=== PATIENT | female | born 2005 | race Caucasian/White ===

== ENCOUNTER 2024-12-16 10:23 | Emergency (ER) | payer OTHER, SELFPAY ==
[2024-12-16 10:24] VITALS: BP 133/88
--- NOTE | 2024-12-16 12:51 | ED.GENMED ---
History of Present Illness
General
Chief Complaint: Nose Bleed
Source: patient
Time Seen by Provider: 12/16/24 12:42
History of Present Illness
History of Present Illness:
Kimberly is a 19-year-old female with history of nosebleeds that presents today from work with ongoing nosebleed. She states that she was at work and blew her nose after which she started having intense nosebleeding from about 10 AM to now (12:52 PM).
She states that she swallowed a lot of blood and feels a little bit lightheaded. She is afraid to blow her nose again as the bleeding is just slowing down now. She shares that she gets 1-2 nosebleeds per year and this has been an ongoing issue
since her childhood days. She also endorses intranasal dryness and environmental sensitivity. She denies trauma to the area, fever/chills, changes in vision, bleeding elsewhere, and recent infection.
Past History
Past History
ED Past Medical History: None
Social History
Tobacco: Non-smoker
Alcohol: None
Drug: None
Review of Systems
Review of Systems
Allergies reviewed?: No
All Other Systems: ROS reviewed and negative except as documented in HPI and ROS
EENT: Reports other (Bilateral epistaxis)
Phy Exam
General Physical Exam
General Presentation: well appearing and no apparent distress
General Skin: warm and dry
General Mental: alert
ENT Exam
ENT Exam: EOMI and other (Bilateral epistaxis)
Cardiovascular Exam
Cardiovascular Exam: regular rate/rhythm
Skin Exam
Skin Exam: normal color and warm/dry
Course
Orders/Labs/Results
Orders:
Orders
12/16/24 13:07
Ice Pack-Treatment DIRECTED
Location: to the neck
Comment: have pt lean forward w/ basin and pinching nose iso bleed, ice pack to neck
Oxymetazoline HCl [Afrin Nasal [place]] See Dose Instructions NASAL BID STA
Sodium Chloride [[place], Saline Mist] 2 sprays NASAL QIDPRN PRN
Vital Signs
Initial and Last Documented VS:
Initial Vital Signs
Temp Pulse Resp BP Pulse Ox
97.9 F 75 18 133/88 99
12/16/24 10:24 12/16/24 10:24 12/16/24 10:24 12/16/24 10:24 12/16/24 10:24
Last Documented Vital Signs
Temp Pulse Resp BP Pulse Ox
97.9 F 75 18 133/88 99
12/16/24 10:24 12/16/24 10:24 12/16/24 10:24 12/16/24 10:24 12/16/24 12:54
MDM/Problems Addressed
Differential Diagnosis Includes:
Epistaxis secondary to dry air or rhinitis
MDM/Problems Addressed:
Kimberly is a 19-year-old female with history of nosebleeds that presents today from work with ongoing nosebleed. She states that she was at work and blew her nose after which she started having intense nosebleeding from about 10 AM to now (12:52 PM).
#Epistaxis
Patient confirms that this is an ongoing problem for when she gets about 1-2 nosebleeds per year. At present, her nosebleed has slowed down, although she endorses being able to taste blood still.
- Encourage patient to sit up with ice to neck and pinch nose
- Irrigate nose with nasal saline
- Afrin spray after irrigation and to go home with
- Have her talk to PCP about following up with ENT as it is a chronic issue
*Pulse Oximetry
SaO2: 99
Oxygen Mode of Delivery: Room air
Patient hypoxic: no
*Critical Care Note
Total Time (30-74mins, 75-104mins- exclusive of procedures): Not Applicable
ED Attending Note
-
Portions of this chart may have been created with voice recognition software.� Occasional wrong word or��sound alike� substitutions may have occurred due to the inherent limitations of voice recognition software.
Discharge Plan
Departure
Patient Disposition: Home (Routine Discharge)
Date of Disposition: 12/16/24
Time of Disposition: 13:20
Patient with high blood pressure during this ER visit?: No
Condition: Good
Discharge Problem:
Epistaxis
Instructions: Nosebleeds, Oxymetazoline (Nasal)
Prescriptions:
New
oxymetazoline [Afrin Sinus (oxymetazoline)] 0.05 % spray,non-aerosol
2 spray intranasal Q12H PRN (Reason: Nosebleed) 3 Days Qty: 22 0RF
Rx Instructions:
Use as needed only and follow-up with PCP
Referrals:
PRIVATE,PHYSICIAN [Family Provider, Internal Medicine] - Call in 1-3 days for appt
Referral Note: Follow-up regarding your nosebleeds, Afrin nasal spray use, and referral to ENT.
Activity Restrictions/Additional Instructions:
Use Afrin sinus spray as instructed and as needed for nosebleeds. Follow-up with your PCP about continued use and referral to ENT for workup of your nosebleeds as this is a chronic problem.
Interventions
Interventions:
*Risk Screen - Suicide Last Done: 12/16/24 10:24
*General Assessment Last Done: 12/16/24 13:45
*Neglect/Abuse Screening Last Done: 12/16/24 13:45
*ED- Fall Risk Assessment Last Done: 12/16/24 13:45
*ED COVID-19 Vaccine History Last Done: 12/16/24 13:45
*Nursing Disposition Last Done: 12/16/24 13:45
ED-EENT Assessment Last Done: 12/16/24 11:35
Discharge Date and Time
Discharge Date/Time: 12/16/24 13:45
Print Language: NAMIBIAN
[2024-12-16] MEDS: AFRIN NASAL SPRAY 2 SPRAYS NASAL (13:16)
== END 2024-12-16 13:45 | disposition home or self-care (01) ==
LOC: EMR 10:23
PROVIDERS: EMERGENCY PHYSICIAN Emergency Medicine
DX: R04.0 Epistaxis (principal); R42 Dizziness and giddiness
CPT/HCPCS: 99283

== ENCOUNTER 2025-01-19 13:42 | Emergency (ER) | payer OTHER, SELFPAY ==
[2025-01-19 13:43] VITALS: BP 130/73
--- NOTE | 2025-01-19 14:01 | ED.GENMED ---
History of Present Illness
General
Chief Complaint: Skin Surface Trauma
Source: patient
Exam Limitations: none
Time Seen by Provider: 01/19/25 13:52
History of Present Illness
History of Present Illness:
19yo right hand dominant female presenting for evaluation of a left middle finger laceration that was sustained around noon yesterday. Patient works at [employer] and was cutting a bagel with a knife when she accidentally cut her distal middle
finger. She bumped her finger again today and the wound started bleeding. No paresthesias. Unknown last Tdap.
Past History
Past History
ED Past Medical History: None
Social History
Tobacco: Non-smoker
Alcohol: None
Drug: None
Phy Exam
General Physical Exam
General Presentation: well appearing and no apparent distress
General Skin: warm and dry
General Habitus: normal
General Mental: alert
ENT Exam
ENT Exam: normocephalic
Pulmonary Exam
Pulmonary Exam: no respiratory distress
Neurological Exam
Neurological Exam: alert
[place] Coma Scale
Eye Opening: Spontaneous
Verbal Response: Oriented
Motor Response: Obeys Commands
GCS Total Score: 15
Skin Exam
Skin Exam: warm/dry and other (1cm laceration noted to the distal fingertip of L middle finger. No active bleeding. No involvement of nail. No bony tenderness. ROM of DIP and PIP joint intact. Sensation and cap refill intact. )
Psychiatric Exam
Psychiatric Exam: normal mood/affect
Course
Orders/Labs/Results
Orders:
Orders
01/19/25 14:01
Tetanus/Diphth/Acelpertussis [Adacel] 0.5 ml IM .ONCE ONE
Vital Signs
Initial and Last Documented VS:
Initial Vital Signs
Temp Pulse Resp BP Pulse Ox
98.4 F 92 14 130/73 100
01/19/25 13:43 01/19/25 13:43 01/19/25 13:43 01/19/25 13:43 01/19/25 13:43
Last Documented Vital Signs
Temp Pulse Resp BP Pulse Ox
98.4 F 92 14 130/73 100
01/19/25 13:43 01/19/25 13:43 01/19/25 13:43 01/19/25 13:43 01/19/25 14:02
MDM/Problems Addressed
Differential Diagnosis Includes:
19yoF here with a L index finger laceration that was sustained yesterday. 1cm laceration noted on exam without active bleeding. No clinical evidence of tendon or neurovascular injury. Wound irrigated and bandage applied. No indication for suture
repair and will avoid skin glue as wound occurred >24 hours ago. Tdap updated and home wound care discussed. Advised return to the ER with any signs of infection.
*Pulse Oximetry
SaO2: 100
Oxygen Mode of Delivery: Room air
Patient hypoxic: no
*Critical Care Note
Total Time (30-74mins, 75-104mins- exclusive of procedures): Not Applicable
ED Attending Note
-
Portions of this chart may have been created with voice recognition software.� Occasional wrong word or��sound alike� substitutions may have occurred due to the inherent limitations of voice recognition software.
Discharge Plan
Departure
Patient Disposition: Home (Routine Discharge)
Date of Disposition: 01/19/25
Time of Disposition: 14:02
Patient with high blood pressure during this ER visit?: No
Discharge Problem:
Laceration of left middle finger
Instructions: Wound Care (DC)
Prescriptions:
No Action
oxymetazoline [Afrin Sinus (oxymetazoline)] 0.05 % spray,non-aerosol
2 spray intranasal Q12H PRN (Reason: Nosebleed) 3 Days Qty: 22 0RF
Rx Instructions:
Use as needed only and follow-up with PCP
Activity Restrictions/Additional Instructions:
Keep wound clean and dry and change dressings daily.
Return to the ER with any signs of infection (redness, warmth, drainage).
Interventions
Interventions:
*Risk Screen - Suicide Last Done: 01/19/25 13:43
*General Assessment Last Done: 01/19/25 13:43
*Neglect/Abuse Screening Last Done: 01/19/25 13:43
*ED- Fall Risk Assessment Last Done: 01/19/25 14:25
*ED COVID-19 Vaccine History Last Done: 01/19/25 13:43
*ED Influenza Vaccine History Last Done: 01/19/25 13:43
*Nursing Disposition Last Done: 01/19/25 14:25
ED-Skin Assessment Last Done: 01/19/25 14:24
Discharge Date and Time
Discharge Date/Time: 01/19/25 14:29
Print Language: LITHUANIAN
[2025-01-19] MEDS: ADACEL 0.5 ML IM (14:19)
== END 2025-01-19 14:29 | disposition home or self-care (01) ==
LOC: EMR 13:42
PROVIDERS: EMERGENCY PHYSICIAN Emergency Medicine
DX: S61.213A Laceration without foreign body of left middle finger without damage to nail, initial encounter (principal); Z23 Encounter for immunization; W26.0XXA Contact with knife, initial encounter; Y99.0 Civilian activity done for income or pay
CPT/HCPCS: 99282; 90471; 90715